=== PATIENT | male | born 1945 | race Caucasian/White ===

== ENCOUNTER 2022-04-01 06:05 | Day surgery (SDC) | payer MEDICARE, BC ==
[2022-03-25 10:20] LABS: BASOPHILS % (AUTO) 0.5 % (0-1); EOSINOPHILS # (AUTO) 0.2 X10'3 (0-0.9); EOSINOPHILS % (AUTO) 2.6 % (0-6); LYMPHOCYTES % (AUTO) 11.6 % (21-51); MEAN CORPUSCULAR HEMOGLOBIN 29.9 PG (27.0-31.0); MEAN CORPUSCULAR HGB CONC 34.3 g/dL (33.0-36.5); MEAN CORPUSCULAR VOLUME 87.2 FL (78-98); MEAN PLATELET VOLUME 8.5 FL (7.4-10.4); MONOCYTES # (AUTO) 0.7 X10'3 (0-0.9); MONOCYTES % (AUTO) 7.7 % (2-12); NEUTROPHILS # (AUTO) 6.9 X10'3 (1.8-7.7); NEUTROPHILS % (AUTO) 77.6 % (42-75); PRE OP HEMATOCRIT 47.2 % (42.0-52.0); PRE OP HEMOGLOBIN 16.2 g/dL (14.0-17.9); PRE OP PLATELET COUNT 197 X10'3 (140-440); RED BLOOD COUNT 5.42 X10'6 (4.70-6.10); RED CELL DISTRIBUTION WIDTH 14.2 % (11.5-14.5)
[2022-03-25 10:22] LABS: CLARITY,URINE CLEAR (Clear); COLOR,URINE YELLOW (Yellow); GLUCOSE, URINE NEGATIVE (Neg); KETONES,URINE NEGATIVE (Neg); LEUKOCYTE ESTERASE ,URINE NEGATIVE (Neg); NITRITES, URINE NEGATIVE (Neg); OCCULT BLOOD,URINE MODERATE (Neg); PROTEIN,URINE NEGATIVE (Neg); UROBILINOGEN,URINE 0.2 E.U/dL (0.2-1.0)
[2022-03-25 10:23] LABS: UA COLLECTION TYPE VOIDED
[2022-03-25 10:31] LABS: BACTERIA,URINE NONE SEEN /HPF (Neg); SQUAMOUS EPITHELIAL CELL,UR NONE SEEN /LPF (FEW); WBC,URINE 0-4 /HPF (0-4)
[2022-03-25 10:38] LABS: ALBUMIN 3.9 G/DL (3.4-5.0); ALBUMIN/GLOBULIN RATIO 1.1 (1.1-1.5); ALKALINE PHOSPHATASE 48 IU/L (46-116); BLOOD UREA NITROGEN 17 MG/DL (7-18); BUN/CREATININE RATIO 15.2 (5.4-32.0); CALCIUM 9.1 MG/DL (8.5-10.1); CHLORIDE 99 MMOL/L (99-107); CREATININE 1.12 MG/DL (0.60-1.10); PRE OP ALT 16 U/L (30-65); PRE OP ANION GAP 6 (8-16); PRE OP AST 18 U/L (10-37); PRE OP BILIRUB, TOTAL 0.9 MG/DL (0.0-1.0); PRE OP GLUCOSE 89 MG/DL (70-104); PRE OP POTASSIUM 3.4 MMOL/L (3.4-5.1); PRE OP SODIUM 136 MMOL/L (135-145); TOTAL CARBON DIOXIDE 31.3 MMOL/L (24-32); TOTAL PROTEIN 7.4 G/DL (6.4-8.2); eGFR 63 ML/MIN
[2022-04-01] VITALS (15 sets, daily range): BP systolic 123–157; BP diastolic 67–94
[~2022-04-01] VITALS: Ht 180.3 cm; Wt 72.0 kg
[~2022-04-01 06:05] MED LIST: ATOR10TA70 PO; ESOM40CA54 PO; HYDR25TA4 PO; RAMI10CA69; ceFAZolin inj. 2,000 MG in dextrose 5%-water 100 ML IV ONE; famotidine 20mg tablet PO ONE; ringers solution, lacted 1,000 ML IV SCH
[2022-04-01] MEDS ORDERED: BUPIVAcaine/PF 2.5 mg/ml (0.25%) 30ml vial ONE (06:47)
[2022-04-01] MEDS ORDERED: fentaNYL/PF 50MCG/1 ML 2ML syringe ONE (08:33)
[2022-04-01] MEDS ORDERED: rocuronium 10mg/ml inj IV ONE (08:34)
[2022-04-01] MEDS ORDERED: midazolam 1 mg/ML 2ml injection ONE (08:34)
[2022-04-01] MEDS ORDERED: propofol inj 20 ML IV ONE (08:34)
[2022-04-01] MEDS ORDERED: ondansetron/PF 4mg/2ml inj ONE (09:02)
[2022-04-01] MEDS ORDERED: dexamethasone sod phosphate 4mg/ml inj. ONE (09:02)
[2022-04-01] MEDS ORDERED: morphine 2 MG/ML inj. syringe IV PRN (09:20)
[2022-04-01] MEDS ORDERED: morphine 4 MG/ML inj SYRINge IV PRN (09:20)
[2022-04-01] MEDS ORDERED: ringers solution, lacted 1,000 ML IV SCH (09:20)
[2022-04-01] MEDS ORDERED: meperidine/PF 25mg/ml syringe IV PRN ×3 (09:20)
[2022-04-01] MEDS ORDERED: ondansetron/PF 4mg/2ml inj IV PRN (09:20)
[2022-04-01] MEDS ORDERED: proCHLORperazine 10 MG/2 ml inj IV PRN (09:20)
[2022-04-01] MEDS ORDERED: glycopyrrolate 0.2mg/ml inj ONE (09:58)
[2022-04-01] MEDS ORDERED: neostigmine methylsulfate 1 MG/ML 10ml vial ONE (09:58)
--- NOTE | 2022-04-01 10:16 | NUR ---
Received from OR via [facility], accompanied by Anesthesiologist DR FLOYD and report given by Anesthesiolgist. PT IS GROGGY BUT WAKES EASILY TO VERBAL STIMULI. PT PLACED ON BEDSIDE MONITOR, VSS. PT IS SB WITH OCCASIONAL PVC'S, HR IN 50'S. PT RECEIVING 8L O2 TO MASK ASN TOLERATING WELL WITH O2 SAT >96%. PT HAS 20G PIV TO LEFT FA WITH LR INFUSING ORDERED. PT HAS 3 LAP SITES TO MID, LT AND RT ABD WITH DERMABOND, ALL SITES ARE CDI WITH NO BANDAGES PRESENT. PT DENIES PAIN AT THIS TIME. WILL CONTINUE TO ASSESS.
--- NOTE | 2022-04-01 12:30 | NUR ---
PT TAKEN OFF MONITOR TO STAND AT BEDSIDE SO HE CAN TRY AND VOID. WILL CONTINUE TO MONITOR.
--- NOTE | 2022-04-01 12:45 | NUR ---
PT DID VOID 125ML WITH NO ISSUES. PT STILL OFF MONITOR AND IS GETTING DRESSED AND WILL D/C SOON.
--- NOTE | 2022-04-01 13:10 | NUR ---
PT HAS MET D/C CRITERIA AND VOIDED. IV D/C'D. VSS. I HAVE REVIEWED D/C INSTRUCTIONS WITH PATIENT AND EDUCATED HIM ON IF HE HAS DIFFICULTY VOIDING TO CALL THE DR'S OFFICE AND IF UNABLE TO VOID AT ALL THE NEED TO GO TO THE ER AND HE HAS VERBALIZED UNDERSTANDING OF INSTRUCTIONS. PATIENT D/C HOME WITH ALL BELONGINGS
== END 2022-04-01 13:02 | disposition home or self-care (01) ==
LOC: PAS 06:05
PROVIDERS: ATTEND Surgery
DX: K40.90 Unilateral inguinal hernia, without obstruction or gangrene, not specified as recurrent (principal); K21.9 Gastro-esophageal reflux disease without esophagitis; Z79.899 Other long term (current) drug therapy; Z98.890 Other specified postprocedural states; Z85.46 Personal history of malignant neoplasm of prostate; Z79.82 Long term (current) use of aspirin; Z87.891 Personal history of nicotine dependence; Z88.8 Allergy status to other drugs, medicaments and biological substances; Z88.2 Allergy status to sulfonamides
CPT/HCPCS: 36415; 49650; 80053; 81001; 82948; 85025; 87811; 93005; C1758; C1781; J0690; J1100; J2175; J2250; J2405; J2704; J2710; J3010; J3490; J7030; J7060; J7120; Z7506; Z7508; Z7512; A4215; A4618